=== PATIENT | male | born 1950 | race Caucasian/White ===

== ENCOUNTER → 2018-04-22 11:11 | Outpatient (CLI) | payer OTHER, SELFPAY ==
--- NOTE | 2018-04-22 | DI.CT.S_ITS ---
PROCEDURE: CT LUMBAR SPINE WO CON INDICATIONS: LUMBAR SPINE PAIN TECHNIQUE: Noncontrast 3 mm thick sections acquired from the T12 level to the sacrum. Sagittal and coronal reformats were constructed. For radiation dose reduction, the following was used: automated exposure control. In this patient, 3-D reformatted images were also performed. COMPARISON: None. FINDINGS: Image quality: Excellent. Bones: Mild dextroconvex scoliotic curvature is seen. Minimal retrolisthesis is seen at T12-L1, L1-L2, and L2-L3. No displaced fractures are seen. No suspicious lytic or blastic lesions are seen. No bethany pars defects are seen. Postoperative changes are seen, with left-sided screws at T10, T11, and T12, and bilateral pedicle screws at the L1-S1 levels, screws also seen involving the iliac wings. The right screw at L5 protrudes anteriorly beyond the anterior cortex. The screws otherwise appear well placed. Disc spacers are seen at L3-L4 and L4-L5. Vertical fixation rods are seen. Lucency is seen surrounding the left T10 screw. No additional findings of hardware failure or hardware loosening are seen. There has been removal of portions of the posterior elements. Bone grafting material is noted. T12-L1: Mild loss of disc height is seen. Vacuum disc phenomenon is seen at this level. Bridging anterior osteophytes are seen on left. Moderate disc bulge is seen, which is eccentric to the right side. At least mild bilateral neural foraminal narrowing is seen. Mild central canal narrowing is seen. L1-L2: At least moderate loss of disc height is seen. Vacuum disc phenomenon is seen at this level. Endplate irregularity and sclerosis are seen. Bridging endplate osteophytes are seen on the left side. There is moderate right-sided and at least moderate left-sided neural foraminal narrowing seen. No significant central canal narrowing is seen. L2-L3: Severe loss of disc height is seen on the left side. Bridging endplate osteophytes are seen on the left. [id number] bilateral neural foraminal narrowing is seen. The central canal is widely patent. L3-L4: Mild disc bulge is seen. There is mild right-sided and moderate left-sided neural foraminal narrowing seen. The central canal is widely patent. L4-L5: Moderate loss of disc height is seen on the right side. Endplate irregularity and sclerosis are seen. Mild disc bulge is seen. There is moderate right-sided and no significant left-sided neural foraminal narrowing seen. The central canal is widely patent. L5-S1: Mild loss of disc height is seen. Loss of disc signal is seen. Vacuum disc phenomenon is seen at this level. There is moderate right-sided and no significant left-sided neural foraminal narrowing seen. The central canal is widely patent. Soft tissues: No retroperitoneal masses or hematomas. Visualized aorta is normal in caliber. IMPRESSION: Extensive postoperative hardware is seen from T10 through the iliac wings. Loosening change is seen change is seen at T10. Otherwise, no significant hardware complications can be seen. Dextroconvex curvature. Multiple levels of degenerative change. Dictated by: Gildardo Ferrari M.D. on 04/22/2018 at 13:08 Approved by: Gildardo Ferrari M.D. on 04/22/2018 at 13:38
== END ==
PROVIDERS: Visit Provider Orthopaedic Surgery
DX: M54.5 Low back pain (principal)
CPT/HCPCS: 72131